=== PATIENT | female | born 1960 | race Caucasian/White ===

== ENCOUNTER 2018-01-17 08:47 | Emergency (ER) | payer OTHER ==
[~2018-01-17] VITALS: Ht 165.1 cm; Wt 108.9 kg
[2018-01-17] MEDS ORDERED: LISINOPRIL10 MG PO (09:02)
[2018-01-17] MEDS ORDERED: KAPSPARGO SPRIN50 MG PO (09:03)
--- NOTE | 2018-01-17 16:06 | EKG ---
[facility] [address] [facility] [place], [place] [address] Signed Normal sinus rhythm with sinus arrhythmia Left axis deviation Nonspecific ST and T wave abnormality Abnormal ECG Confirmed by EDUARDO COHEN DO ([id number]) on 01/17/2018 4:05:47 PM Electronically Signed By: EDUARDO COHEN DO 01/17/18 1606 PATIENT NAME: FANNY KAY Electrocardiogram DATE OF : 60 PHYSICIAN: EDUARDO COHEN DO REPORT #: [id number] REPORT IS CONFIDENTIAL AND NOT TO BE RELEASED WITHOUT AUTHORIZATION
== END 2018-01-17 10:35 | disposition home or self-care (01) ==
LOC: ED 08:47
DX: R07.2 Precordial pain (principal); R51 Headache; Z91.041 Radiographic dye allergy status; Z79.899 Other long term (current) drug therapy
CPT/HCPCS: 71045; 80048; 84484; 85025; 93005; 93010; 96361; 96374; 96375; 99285; J1200; J1885; J2405; J2765; J7030